=== PATIENT | female | born 1955 | race Caucasian/White ===

== ENCOUNTER → 2025-07-06 08:20 | Outpatient (REF) | payer MEDICARE, OTHER, SELFPAY | LOC: HWRCS 08:20 | PROVIDERS: ATTENDING PHYSICIAN Physician Assistant Medical; FAMILY PHYSICIAN Registered Nurse | DX: R00.2 Palpitations (principal); R06.09 Other forms of dyspnea; Q21.0 Ventricular septal defect | CPT/HCPCS: 93306 ==